=== PATIENT | male | born 1970 | race Caucasian/White ===

== ENCOUNTER → 2017-01-19 | Outpatient (CLI) | payer BC ==
--- NOTE | 2017-01-19 16:05 | Diagnostic Imaging Report ---
Indication: Cough Comparison: None 2 views of the chest obtained. Findings: Cardiomediastinal silhouette and pulmonary vascularity are within normal limits for age. The diaphragmatic contour is smooth and costophrenic angles are sharp. No pleural effusions are identified. The bones are unremarkable. Impression: No acute disease
== END | disposition home or self-care (01) ==
LOC: RAD 14:58
DX: Z01.818 Encounter for other preprocedural examination (principal); R05 Cough
CPT/HCPCS: 71020

== ENCOUNTER 2018-02-09 21:00 | Emergency (ER) | payer BC ==
[~2018-02-09] VITALS: Ht 182.9 cm; Wt 81.6 kg
--- NOTE | 2018-02-09 21:17 | Emergency Room Report ---
History of Present Illness General Chief Complaint: Nausea, Vomiting, and Diarrhea Source: Patient Present Illness HPI Patient is a 47-year-old male who presented after increased generalized weakness and diarrhea. The patient had recently been having increased diarrheal illness. Patient was noted to be HIV positive and had been on a antiviral which is still under investigation. The patient for by Dr. Shelton. He denies any hematemesis or bloody stools. The patient reports having diminished appetite. He reports having less frequent episodes of diarrhea. Allergies: Coded Allergies: SULFA (SULFONAMIDE ANTIBIOTICS) (Verified Allergy, Unknown, 02/09/18) SULFAMETHOXAZOLE (Verified Allergy, Unknown, 02/09/18) TRIMETHOPRIM (Verified Allergy, Unknown, 02/09/18) Patient History Past Medical History: see triage record Reviewed Nursing Documentation: PMH: Agreed; PSxH: Agreed Nursing Documentation-PMH Past Medical History: No History, Except For Review of Systems All Other Systems: negative except mentioned in HPI Physical Exam Vital Signs Date Time Temp Pulse Resp B/P (MAP) Pulse Ox O2 Delivery O2 Flow Rate FiO2 02/09/18 21:02 99.3 99 21 115/77 95 Room Air 99.3 Sp02 EP Interpretation: reviewed, normal General Appearance: normal inspection, well appearing, no apparent distress, alert, GCS 15, non-toxic Head: atraumatic ENT: normal ENT inspection, hearing grossly normal, normal voice Neck: normal inspection, full range of motion, supple, no bony tend Respiratory: normal inspection, lungs clear, normal breath sounds, no respiratory distress, no retraction, no wheezing Cardiovascular #1: regular rate, rhythm, no edema Gastrointestinal: normal inspection, normal bowel sounds, non tender, soft, no guarding, no hernia Genitourinary: no CVA tenderness Musculoskeletal: normal inspection, back normal, normal range of motion Neurologic: normal inspection, alert, oriented x3, responsive, sticker hand III-XII nml as tested, speech normal Psychiatric: normal inspection, judgement/insight normal, mood/affect normal Skin: normal inspection, normal color, no rash Medical Decision Making Diagnostic Impression: Primary Impression: Dehydration Additional Impression: Hypokalemia ER Course Patient presented for abdominal pain and generalized weakness.. Differential diagnoses included ischemic bowel, appendicitis, perforated viscus, abdominal aortic aneurysm, inferior myocardial infarction, viral gastroenteritis. Because of complexity of patient's case laboratory testing and imaging studies were ordered.the laboratory testing was notable for evidence of dehydration as well as hypokalemia.The patient was given IV fluids as well as oral potassium. He is given prescription for potassium pills. Patient is advised follow-up with primary care physician for reevaluation and recheck of labs. He is advised continue oral hydration.The patient is advised to follow up with primary care doctor in 1-2 days. Patient is advised to return if any worsening condition or if any changes in status that are concerning. This report is dictated with [employer] administrative asst software which may occasionally lead to discrepancies related to use of this software. Labs Test 02/09/18 21:50 02/09/18 23:27 White Blood Count 4.5 K/UL (4.8-10.8) Red Blood Count 4.54 M/UL (4.70-6.10) Hemoglobin 14.0 G/DL (14.2-18.0) Hematocrit 40.4 % (42.0-52.0) Mean Corpuscular Volume 89 FL (80-99) Mean Corpuscular Hemoglobin 30.8 PG (27.0-31.0) Mean Corpuscular Hemoglobin Concent 34.7 G/DL (32.0-36.0) Red Cell Distribution Width 10.6 % (11.6-14.8) Platelet Count 114 K/UL (150-450) Mean Platelet Volume 8.1 FL (6.5-10.1) Neutrophils (%) (Auto) 65.7 % (45.0-75.0) Lymphocytes (%) (Auto) 20.6 % (20.0-45.0) Monocytes (%) (Auto) 11.6 % (1.0-10.0) Eosinophils (%) (Auto) 0.5 % (0.0-3.0) Basophils (%) (Auto) 1.5 % (0.0-2.0) Sodium Level 126 MMOL/L (136-145) Potassium Level 2.5 MMOL/L (3.5-5.1) Chloride Level 91 MMOL/L (98-107) Carbon Dioxide Level 26 MMOL/L (21-32) Anion Gap 9 mmol/L (5-15) Blood Urea Nitrogen 28 mg/dL (7-18) Creatinine 1.7 MG/DL (0.55-1.30) Estimat Glomerular Filtration Rate 43.8 mL/min (>60) Glucose Level 109 MG/DL (74-106) Calcium Level 8.7 MG/DL (8.5-10.1) Total Bilirubin 1.0 MG/DL (0.2-1.0) Aspartate Amino Transf (AST/SGOT) 48 U/L (15-37) Alanine Aminotransferase (ALT/SGPT) 46 U/L (12-78) Alkaline Phosphatase 68 U/L (46-116) Total Protein 6.7 G/DL (6.4-8.2) Albumin 3.3 G/DL (3.4-5.0) Globulin 3.4 g/dL Albumin/Globulin Ratio 1.0 (1.0-2.7) Lipase 49 U/L (73-393) Urine Color Pale yellow Urine Appearance Clear Urine pH 6 (4.5-8.0) Urine Specific [place] 1.005 (1.005-1.035) Urine Protein Negative (NEGATIVE) Urine Glucose (UA) Negative (NEGATIVE) Urine Ketones Negative (NEGATIVE) Urine Blood 3+ (NEGATIVE) Urine Nitrite Negative (NEGATIVE) Urine Bilirubin Negative (NEGATIVE) Urine Urobilinogen Normal MG/DL (0.0-1.0) Urine Leukocyte Esterase Negative (NEGATIVE) Urine RBC 0-2 /HPF (0 - 0) Urine WBC 0-2 /HPF (0 - 0) Urine Squamous Epithelial Cells None /LPF (NONE/OCC) Urine Bacteria Occasional /HPF (NONE) Last Vital Signs Date Time Temp Pulse Resp B/P (MAP) Pulse Ox O2 Delivery O2 Flow Rate FiO2 02/09/18 21:02 99.3 99 21 115/77 95 Room Air 99.3 Status: improved Disposition: HOME, SELF-CARE Condition: Stable Scripts Potassium Chloride (POTASSIUM CHLORIDE) 10 Meq Tab.er.prt 10 MEQ PO DAILY, #20 TAB Prov: Frederick Benites MD 02/09/18 Frederick Benites MD Feb 09, 2018 21:17
[2018-02-09] MEDS ORDERED: LR 1000ml 1,000 ML IV SCH (21:45)
[2018-02-09 22:05] LABS: BASOPHILS % (AUTO) 1.5 % (0.0-2.0); EOSINOPHILS % (AUTO) 0.5 % (0.0-3.0); HEMATOCRIT 40.4 % (42.0-52.0); LYMPHOCYTES % (AUTO) 20.6 % (20.0-45.0); MEAN CORPUSCULAR VOLUME 89 FL (80-99); MONOCYTES % (AUTO) 11.6 % (1.0-10.0); NEUTROPHILS % (AUTO) 65.7 % (45.0-75.0); PLATELET COUNT 114 K/UL (150-450); RED BLOOD COUNT 4.54 M/UL (4.70-6.10); RED CELL DISTRIBUTION WIDTH 10.6 % (11.6-14.8); WHITE BLOOD COUNT 4.5 K/UL (4.8-10.8)
[2018-02-09 22:19] LABS: ALANINE AMINOTRANSFERASE 46 U/L (12-78); ALBUMIN 3.3 G/DL (3.4-5.0); ALKALINE PHOSPHATASE 68 U/L (46-116); ANION GAP 9 mmol/L (5-15); ASPARTATE AMINO TRANSFERASE 48 U/L (15-37); BLOOD UREA NITROGEN 28 mg/dL (7-18); CALCIUM 8.7 MG/DL (8.5-10.1); CARBON DIOXIDE 26 MMOL/L (21-32); CHLORIDE 91 MMOL/L (98-107); CREATININE 1.7 MG/DL (0.55-1.30); SODIUM 126 MMOL/L (136-145)
[2018-02-09 22:21] LABS: POTASSIUM 2.5 MMOL/L (3.5-5.1)
[2018-02-09 23:02] VITALS: BP 125/73
[2018-02-09 23:44] LABS: APPEARANCE,URINE CLEAR; BILIRUBIN, URINE NEGATIVE (NEGATIVE); COLOR,URINE PALE YELLOW; GLUCOSE, URINE (UA) NEGATIVE (NEGATIVE); KETONES,URINE NEGATIVE (NEGATIVE); LEUKOCYTE ESTERASE ,URINE NEGATIVE (NEGATIVE); NITRITE,URINE NEGATIVE (NEGATIVE); PH,URINE 6 (4.5-8.0); PROTEIN,URINE NEGATIVE (NEGATIVE); UROBILINOGEN,URINE NORMAL MG/DL (0.0-1.0)
[2018-02-09] MEDS ORDERED: POTASSIUM CHLO10 ME2 PO (23:54)
[2018-02-10 00:19] VITALS: BP 112/59
[2018-02-10 00:20] VITALS: BP 112/59
== END 2018-02-10 00:23 | disposition home or self-care (01) ==
LOC: EMR 23:55
DX: E86.0 Dehydration (principal); E87.6 Hypokalemia; Z88.2 Allergy status to sulfonamides; Z88.8 Allergy status to other drugs, medicaments and biological substances
CPT/HCPCS: 36415; 80053; 81003; 83690; 85025; 96361; 96374; 99284; J2405; J8499

== ENCOUNTER → 2020-01-31 | Outpatient (CLI) | payer BC ==
[~2020-01-31] MED LIST: CIPROFLOXACIN500 M2 ORAL; POTASSIUM CHLO10 ME2 PO; SYMTUZA 800-151 EACH PO; VALACYCLOVIR500 MG ORAL; VALTREX1000 MG PO
--- NOTE | 2020-01-31 13:06 | Diagnostic Imaging Report ---
Indication: Cough Technique: 2 views of the chest Comparison: 01/19/2017 Findings: There is mild thoracic scoliotic deformity. The lungs and pleural spaces are clear. The heart size is normal. There is no significant interim change Impression: No acute process
== END | disposition home or self-care (01) ==
LOC: RAD 11:58
DX: R05 Cough (principal)
CPT/HCPCS: 71046